=== PATIENT | female | born 1960 | race Hispanic/Latino ===

== ENCOUNTER 2024-11-08 23:58 | Emergency (ER) | payer OTHER, MEDICARE ==
[~2024-11-08] VITALS: Ht 157.5 cm; Wt 61.2 kg
[2024-11-09 01:02] LABS: BASOPHILS % 0.2 % (0.0-1.0); HEMATOCRIT 42.7 % (34.2-44.1); HEMOGLOBIN 14.5 g/dL (12.0-16.0); LYMPHOCYTES # (AUTO) 1.1 (1.0-3.2); LYMPHOCYTES % 12.3 % (18.0-39.1); MEAN CORPUSCULAR HEMOGLOBIN 30.6 pg (28-32); MEAN CORPUSCULAR VOLUME 90.1 fL (81-99); MONOCYTES # (AUTO) 0.3 (0.2-0.8); MONOCYTES % 3.2 % (4.4-11.3); NEUTROPHILS # (AUTO) 7.3 (2.1-6.9); PLATELET COUNT 233 x10e3/uL (140-360); RED BLOOD COUNT 4.74 x10e6/uL (3.6-5.1); RED CELL DISTRIBUTION WIDTH 14.1 % (11.7-14.4); WHITE BLOOD COUNT 8.65 x10e3/uL (4.8-10.8)
[2024-11-09 01:06] LABS: INR 0.82; PROTHROMBIN TIME 12.1 seconds (11.9-14.5)
[2024-11-09] MEDS: SODIUM CHLORIDE 0.9% 1000ML 1,000 ML IV ONE (01:17)
[2024-11-09] MEDS: ONDANSETRON HCL INJ 2MG/ML 2ML 2 MG/ML VIAL IV STA (01:17)
[2024-11-09 01:32] LABS: TROPONIN I < 0.05 ng/mL (0.0-0.40)
[2024-11-09 01:34] LABS: ALBUMIN/GLOBULIN RATIO 1.1 (0.8-2.0); ANION GAP 19.2 mmol/L (8-16); BILIRUBIN,TOTAL 0.9 mg/dL (0.2-1.2); CALCIUM 9.2 mg/dL (8.4-10.2); CREATININE, SERUM 0.77 mg/dL (0.57-1.11); LIPASE 44 U/L (8-78); POTASSIUM 3.2 mmol/L (3.5-5.1); TOTAL PROTEIN 7.6 g/dL (6.5-8.1)
[2024-11-09] MEDS ORDERED: IOPAMIDOL 370 MG/ML 100 ML INFUS..BTL INJ ONE (01:50)
[2024-11-09] MEDS ORDERED: SODIUM CHLORIDE 0.9% 100 ML ONE (01:50)
[2024-11-09 03:13] LABS: CLARITY,URINE CLEAR (CLEAR); COLOR,URINE YELLOW (YELLOW); GLUCOSE, URINE 1+ (NEGATIVE); KETONES,URINE 2+ (NEGATIVE); LEUKOCYTE ESTERASE ,URINE NEGATIVE (NEGATIVE); NITRITE,URINE NEGATIVE (NEGATIVE); PH,URINE 7 (5 - 7); PROTEIN,URINE DIPSTICK NEGATIVE (NEGATIVE)
[2024-11-09 03:16] LABS: BILIRUBIN,URINE NEGATIVE (NEGATIVE); URINE UROBILINOGEN 0.2 mg/dL (0.2 - 1)
[2024-11-09 03:49] LABS: BACTERIA,URINE FEW /HPF; EPITHELIAL CELLS,URINE FEW /LPF; RBC,URINE 0-5 /HPF (0-5)
[2024-11-09] MEDS ORDERED: PANTOPRAZOLE SO40 MG PO (05:54)
[2024-11-09] MEDS ORDERED: ONDANSETRON ODT4 MG SL (05:54)
[2024-11-09 06:14] VITALS: PULSE 71; RESP 18; TEMP 98.3; O2SAT 98
== END 2024-11-09 06:16 | disposition home or self-care (01) ==
LOC: ER 11-09 00:51
DX: R11.2 Nausea with vomiting, unspecified (principal); A05.9 Bacterial foodborne intoxication, unspecified; E11.65 Type 2 diabetes mellitus with hyperglycemia; Z85.3 Personal history of malignant neoplasm of breast
CPT/HCPCS: 36415; 74174; 80053; 81001; 83690; 84484; 85025; 85610; 85730; 93005; 99284; J2405; J2470; J7030; J7050; Q9967